=== PATIENT | male | born 1950 | race Caucasian/White ===

== ENCOUNTER 2022-03-25 08:47 | Observation (INO) ==
[2022-03-25 09:29] LABS: Basophils % 0.4 % (0.0-0.8); Eosinophils # 0.1 10*3/uL (0.0-0.87); Eosinophils % 0.5 % (0.00-10.9); Hematocrit 48.6 VOL% (42.0-52.0); Hemoglobin 16.3 GM/DL (14.0-18.0); Immature Granulocytes % 0.6 %; Immature Granulocytes Absolute 0.06 #; Lymphocytes # 1.8 10*3/uL (1.4-4.0); Lymphocytes % 17.5 % (21.2-54.2); Mean Corpuscular HGB Conc 33.5 GM/DL (32-36); Mean Corpuscular Volume 90.7 FL (87-102); Mean Platelet Volume 9.5 FL (9.6-12.0); Monocytes # 1.2 10*3/uL (0.11-0.8); Monocytes % 11.4 % (1.7-12.7); Neutrophils % 69.6 % (38.7-73.9); Platelet Count 254 T/CUMM (130-400); Red Blood Count 5.36 MC/CUMM (3.8-5.5); Red Cell Distribution Width 13.6 % (9.3-17.3); White Blood Count 10.23 T/CUMM (4-12)
[2022-03-25 09:34] LABS: Bilirubin,Urine Moderate mg/dL (Negative); Blood, Urine Large mg/dL (Negative); Glucose,Urine (UA) Negative (Negative); Ketones,Urine 80 mg/dL (Negative); Mucus,Urine Many /LPF (Occasional); Nitrite,Urine Negative (Negative); Protein,Urine 100 mg/dL (Negative); RBC,Urine 30-35 /HPF (0-4); Squamous Epithelial Cell,Urine Occasional /HPF (0-10); Urine Appearance Clear (Clear); Urine Color Yellow (Yellow); Urine Specific Gravity > 1.030 (1.001-1.035); Urine Urobilinogen 0.2 eU/dL (<2.0)
[2022-03-25 10:13] LABS: Albumin 3.4 G/DL (3.4-5.0); Bilirubin,Total 0.4 MG/DL (0.20-1.00); Calcium 8.9 MG/DL (8.5-10.1); Osmolality,Calculated 261.7 MOS/KG (273-304); Potassium 3.6 MMOL/L (3.5-5.1); Total Protein 8.5 G/DL (6.4-8.2)
[2022-03-25] MEDS ORDERED: ALUMINUM/MAGNES/SIMETH MAX STR 30 ML UDCUP PO PRN (12:01)
[2022-03-25] MEDS ORDERED: BISACODYL 5 MG TABLET PO PRN (12:01)
[2022-03-25] MEDS ORDERED: SIMETHICONE CHEW 125 MG TABLET PO PRN (12:01)
[2022-03-25] MEDS ORDERED: ONDANSETRON 4 MG/2 ML VIAL IV PRN (12:01)
[2022-03-25] MEDS ORDERED: ACETAMINOPHEN 325 MG TABLET PO PRN (12:01)
[2022-03-25] MEDS ORDERED: ALBUTEROL 2.5 MG/3 ML NEB RESP TX PRN (12:01)
[2022-03-25] MEDS ORDERED: CALCIUM CARBONATE CHEW 500 MG TABLET PO PRN (12:01)
[2022-03-25] MEDS ORDERED: AZITHROMYCIN 250 MG TABLET PO STA (12:17)
[2022-03-25] MEDS ORDERED: SIMETHICONE CHEW 80 MG TABLET PO STA (12:18)
[2022-03-25] MEDS: ALBUTEROL/IPRATROPIUM 3 ML NEB RESP TX SCH ×2 (12:45→19:41)
[2022-03-25] MEDS: SODIUM CHLORIDE 0.9% 1,000 ML IV SCH ×2 (12:48→23:33)
[2022-03-25] MEDS: ENOXAPARIN 40 MG/0.4 ML SYRINGE SUBCUT SCH (12:53)
[2022-03-25] MEDS: DOXYCYCLINE HYCLATE 100 MG CAPSULE PO SCH (21:32)
[2022-03-25] MEDS: DOCUSATE SODIUM 100 MG CAPSULE PO SCH (21:32)
[2022-03-26] MEDS: ALBUTEROL/IPRATROPIUM 3 ML NEB RESP TX SCH ×2 (00:52→07:05)
[2022-03-26 05:20] LABS: Basophils % 0.3 % (0.0-0.8); Eosinophils # 0.1 10*3/uL (0.0-0.87); Eosinophils % 0.5 % (0.00-10.9); Hematocrit 38.1 VOL% (42.0-52.0); Immature Granulocytes % 0.3 %; Immature Granulocytes Absolute 0.04 #; Lymphocytes # 1.8 10*3/uL (1.4-4.0); Lymphocytes % 12.6 % (21.2-54.2); Mean Corpuscular HGB Conc 34.9 GM/DL (32-36); Mean Corpuscular Volume 88.2 FL (87-102); Mean Platelet Volume 9.6 FL (9.6-12.0); Monocytes # 1.4 10*3/uL (0.11-0.8); Monocytes % 9.6 % (1.7-12.7); Neutrophils % 76.7 % (38.7-73.9); Platelet Count 223 T/CUMM (130-400); Red Blood Count 4.32 MC/CUMM (3.8-5.5); Red Cell Distribution Width 13.3 % (9.3-17.3)
[2022-03-26 05:30] LABS: White Blood Count 14.48 T/CUMM (4-12)
[2022-03-26 05:31] LABS: Hemoglobin 13.3 GM/DL (14.0-18.0)
[2022-03-26 05:52] LABS: Calcium 7.7 MG/DL (8.5-10.1); Osmolality,Calculated 267.2 MOS/KG (273-304); Potassium 3.7 MMOL/L (3.5-5.1); Thyroid Stimulating Hormone 0.874 uIU/ml (0.358-3.74)
[2022-03-26] MEDS ORDERED: POLYETHYLENE GLYCOL POWDER 17 GM PACK PO SCH (09:00)
[2022-03-26] MEDS ORDERED: PANTOPRAZOLE 40 MG TABLET PO SCH (09:00)
[2022-03-26] MEDS ORDERED: AZITHROMYCIN 250 MG TABLET PO SCH (09:00)
[2022-03-26] MEDS: DOXYCYCLINE HYCLATE 100 MG CAPSULE PO SCH (09:56)
[2022-03-26] MEDS: DOCUSATE SODIUM 100 MG CAPSULE PO SCH (09:58)
[2022-03-26 11:53] VITALS: BP 119/56
[2022-03-26] MEDS: ENOXAPARIN 40 MG/0.4 ML SYRINGE SUBCUT SCH (12:28)
== END 2022-03-26 12:48 | disposition home or self-care (01) ==
LOC: N.ED 08:47 → N.EDINP 08:47 → SUATTDRO 12:00 → N.EDINP 13:23 → N.2E 13:32
PROVIDERS: ADMIT Internal Medicine; ATTEND Internal Medicine